=== PATIENT | male | born 1965 | race African-American/Black ===

== ENCOUNTER → 2018-05-18 11:40 | Outpatient (CLI) | payer OTHER, SELFPAY ==
[2018-05-18 15:23] LABS: Absolute Lymphocyte Count 1.92 X10^3/ul (0.83-4.51); Absolute Neutrophil Count 4.8 X10^3/uL (2.0-7.7); Basophil# 0.03 X10^3/uL; Basophil% 0.4 % (0-1); Eosinophil# 0.07 X10^3/uL; Hematocrit 41.3 % (40-54); Hemoglobin 13.1 g/dl (13.0-16.5); Lymphocyte # 1.92 X10^3/ul (4.0); Lymphocyte % 26.8 % (19-41); Mean Corp Hgb Conc 31.7 g/gl (32-36); Mean Corpuscular Volume 94.5 fL (80-94); Mean Platelet Vol. 9.3 fl (6.2-12.0); Monocyte# 0.31 X10^3/uL; Monocyte% 4.3 % (0-10); Neutrophil # 4.83 X10^3/uL (2.7-7.7); Neutrophil % 67.4 % (47-70); Platelet Count 419 K/mm3 (150-450); RBC Distribution Width SD 47.9 fl (35.1-43.9); Red Blood Count 4.37 M/mm3 (4.6-6.2); White Blood Count 7.2 K/mm3 (4.4-11.0)
[2018-05-18 15:26] LABS: POSITIVE COUNT NO; POSITIVE DIFFERENTIAL NO; POSITIVE MORPHOLOGY NO
[2018-05-18 15:37] LABS: ALB/GLOB Ratio 0.8 RATIO (0.9-2.4); AST(SGOT) 17 U/L (15-37); Alanine Aminotransfer ALT/SGPT 37 U/L (16-61); Albumin, Serum 3.6 g/dL (3.2-5.0); Alkaline Phosphatase 82 U/L (45-117); Anion Gap 9 (5-15); BUN 8 mg/dL (7-18); BUN/Creat Ratio 9.1 RATIO (10-20); Calcium,Total 8.3 mg/dL (8.5-10.1); Chloride 106 mmol/L (98-107); Cholesterol 162 mg/dL (200); Creatinine, Serum 0.88 mg/dL (0.70-1.30); EST Glomerular Filtration Rate 96 mL/min (>60); Est Glom Filt Rate - Afr Amer 116 mL/min (>60); Globulin 4.3 g/dL (2.2-4.2); Glucose 110 mg/dL (74-106); High Density Lipoprotein 54 mg/dL; PSA,Total - Annual Screen 0.65 ng/mL (0.00-4.00); Potassium 4.2 mmol/L (3.5-5.1); Protein, Total 7.9 g/dL (6.4-8.2); Sodium Level 140 mmol/L (136-145); Triglycerides 119 mg/dL; Very Low Density Lipoprotein 24 mg/dL (5-40)
[2018-05-18 15:48] LABS: Microalbumin,Random Urine 11.8 mg/L (NO RANGE EST.); Microalbumin:Creatinine Ratio 7.8 mg/g CRE (<30 mg/g CRE)
== END ==
LOC: BFHLAB 11:41
PROVIDERS: Family Provider Family Medicine; PCP Family Medicine; Visit Provider Family Medicine
DX: E11.9 Type 2 diabetes mellitus without complications (principal); I10 Essential (primary) hypertension; E66.3 Overweight; E01.0 Iodine-deficiency related diffuse (endemic) goiter; Z12.5 Encounter for screening for malignant neoplasm of prostate
CPT/HCPCS: 36415; 80053; 80061; 82043; 82570; 84153; 85025; G0103

== ENCOUNTER → 2019-08-20 15:47 | Outpatient (CLI) | payer OTHER, SELFPAY ==
[2019-08-20 17:01] LABS: Absolute Lymphocyte Count 2.24 X10^3/uL (0.83-4.51); Absolute Neutrophil Count 3.9 X10^3/uL (2.0-7.7); Basophil# 0.03 X10^3/uL; Basophil% 0.4 % (0-1); Eosinophil# 0.18 X10^3/uL; Eosinophils% 2.6 % (0-5); Hematocrit 41.8 % (40-54); Hemoglobin 13.7 g/dL (13.0-16.5); Lymphocyte # 2.24 X10^3/ul (4.0); Lymphocyte % 32.4 % (19-41); Mean Corp Hgb Conc 32.8 g/dL (32-36); Mean Corpuscular Volume 91.5 fL (80-94); Mean Platelet Vol. 9.3 fl (6.2-12.0); Monocyte# 0.55 X10^3/uL; Monocyte% 7.9 % (0-10); NRBC Flagged by Analyzer 0 % (0-5); Neutrophil % 56.4 % (47-70); Platelet Count 407 K/mm3 (150-450); RBC Distribution Width CV 13.2 % (11.6-14.6); RBC Distribution Width SD 44.1 fl (35.1-43.9); Red Blood Count 4.57 M/mm3 (4.6-6.2); White Blood Count 6.9 K/mm3 (4.4-11.0)
[2019-08-20 17:17] LABS: ALB/GLOB Ratio 0.9 RATIO (0.9-2.4); AST(SGOT) 17 U/L (15-37); Alanine Aminotransfer ALT/SGPT 43 U/L (16-61); Albumin, Serum 3.8 g/dL (3.2-5.0); Alkaline Phosphatase 93 U/L (45-117); Anion Gap 3 (5-15); BUN 14 mg/dL (7-18); BUN/Creat Ratio 13.6 RATIO (10-20); Calcium,Total 8.7 mg/dL (8.5-10.1); Chloride 105 mmol/L (98-107); Cholesterol 170 mg/dL (200); Creatinine, Serum 1.03 mg/dL (0.70-1.30); EST Glomerular Filtration Rate 79 mL/min (>60); Est Glom Filt Rate - Afr Amer 96 mL/min (>60); Globulin 4.3 g/dL (2.2-4.2); Glucose 91 mg/dL (74-106); High Density Lipoprotein 56 mg/dL; Potassium 4.4 mmol/L (3.5-5.1); Protein, Total 8.1 g/dL (6.4-8.2); Sodium Level 135 mmol/L (136-145); Triglycerides 108 mg/dL; Very Low Density Lipoprotein 22 mg/dL (5-40)
[2019-08-20 17:18] LABS: Hemoglobin A1c 6.9 % (4.2-6.3)
[2019-08-20 17:38] LABS: Microalbumin,Random Urine 23.6 mg/L (NO RANGE EST.); Microalbumin:Creatinine Ratio 8.1 mg/g CRE (<30 mg/g CRE)
== END ==
LOC: BFHLAB 15:48
PROVIDERS: Family Provider Family Medicine; PCP Family Medicine; Visit Provider Family Medicine
DX: Z00.00 Encounter for general adult medical examination without abnormal findings (principal); E11.9 Type 2 diabetes mellitus without complications; Z12.5 Encounter for screening for malignant neoplasm of prostate
CPT/HCPCS: 36415; 80053; 80061; 82043; 82570; 83036; 84153; 85025; G0103

== ENCOUNTER → 2020-08-28 10:47 | Outpatient (CLI) | payer OTHER, SELFPAY ==
[2014-07-11 09:42] VITALS: BMI 28.1
[2020-08-28 12:56] LABS: Absolute Lymphocyte Count 3.19 X10^3/uL (0.83-4.51); Absolute Neutrophil Count 3.5 X10^3/uL (2.0-7.7); Basophil# 0.06 X10^3/uL; Basophil% 0.8 % (0-1); Eosinophil# 0.26 X10^3/uL; Eosinophils% 3.5 % (0-5); Hematocrit 44.7 % (40-54); Hemoglobin 14.7 g/dL (13.0-16.5); Lymphocyte # 3.19 X10^3/ul (4.0); Lymphocyte % 42.6 % (19-41); Mean Corp Hgb Conc 32.9 g/dL (32-36); Mean Corpuscular Hgb 30.7 pg (27.0-32.0); Mean Corpuscular Volume 93.3 fL (80-94); Mean Platelet Vol. 9.5 fl (6.2-12.0); Monocyte# 0.44 X10^3/uL; Monocyte% 5.9 % (0-10); NRBC Flagged by Analyzer 0 % (0-5); Neutrophil # 3.51 X10^3/uL (2.7-7.7); Neutrophil % 46.8 % (47-70); Platelet Count 459 K/mm3 (150-450); RBC Distribution Width CV 13.2 % (11.6-14.6); RBC Distribution Width SD 45.5 fl (35.1-43.9); Red Blood Count 4.79 M/mm3 (4.6-6.2); White Blood Count 7.5 K/mm3 (4.4-11.0)
[2020-08-28 13:12] LABS: Hemoglobin A1c 7.1 % (3.8-5.6)
[2020-08-28 13:16] LABS: Microalbumin,Random Urine 23.4 mg/L (NO RANGE EST.); Microalbumin:Creatinine Ratio 11.7 mg/g CRE (<30 mg/g CRE)
[2020-08-28 13:42] LABS: ALB/GLOB Ratio 0.8 RATIO (0.9-2.4); AST(SGOT) 15 U/L (15-37); Alanine Aminotransfer ALT/SGPT 32 U/L (16-61); Albumin, Serum 3.6 g/dL (3.2-5.0); Alkaline Phosphatase 105 U/L (45-117); Anion Gap 10 (5-15); BUN 8 mg/dL (7-18); BUN/Creat Ratio 8.4 RATIO (10-20); Calcium,Total 8.7 mg/dL (8.5-10.1); Chloride 108 mmol/L (98-107); Cholesterol 172 mg/dL (200); Creatinine, Serum 0.95 mg/dL (0.70-1.30); EST Glomerular Filtration Rate 86 mL/min (>60); Est Glom Filt Rate - Afr Amer 105 mL/min (>60); Globulin 4.4 g/dL (2.2-4.2); Glucose 100 mg/dL (74-106); High Density Lipoprotein 49 mg/dL; PSA,Total - Annual Screen 0.74 ng/mL (0.00-4.00); Potassium 4.2 mmol/L (3.5-5.1); Sodium Level 140 mmol/L (136-145); Triglycerides 135 mg/dL; Very Low Density Lipoprotein 27 mg/dL (5-40)
== END ==
PROVIDERS: PCP Family Medicine; Visit Provider Family Medicine
DX: Z00.00 Encounter for general adult medical examination without abnormal findings (principal); E11.9 Type 2 diabetes mellitus without complications; Z12.5 Encounter for screening for malignant neoplasm of prostate
CPT/HCPCS: 36415; 80053; 80061; 82043; 82570; 83036; 84153; 85025; G0103

== ENCOUNTER → 2022-10-18 | Outpatient (CLI) | payer OTHER, SELFPAY ==
[2022-10-18 15:05] LABS: Absolute Lymphocyte Count 2.01 X10^3/uL (0.83-4.51); Basophil# 0.06 X10^3/uL; Basophil% 0.9 % (0-1); Eosinophil# 0.12 X10^3/uL; Eosinophils% 1.8 % (0-5); Hematocrit 44.2 % (40-54); Hemoglobin 14.6 g/dL (13.0-16.5); Lymphocyte # 2.01 X10^3/ul (0.83-4.51); Lymphocyte % 30.2 % (19-41); Mean Corpuscular Hgb 31.1 pg (27.0-32.0); Mean Platelet Vol. 9.3 fl (6.2-12.0); Monocyte# 0.49 X10^3/uL; Monocyte% 7.4 % (0-10); NRBC Flagged by Analyzer 0 % (0-5); Neutrophil # 3.96 X10^3/uL (2.7-7.7); Neutrophil % 59.4 % (47-70); Platelet Count 421 K/mm3 (150-450); RBC Distribution Width CV 13.1 % (11.6-14.6); RBC Distribution Width SD 45.1 fl (35.1-43.9); White Blood Count 6.7 K/mm3 (4.4-11.0)
[2022-10-18 15:49] LABS: Microalbumin,Random Urine 19.4 mg/L (NO RANGE EST.); Microalbumin:Creatinine Ratio 7.7 mg/g CRE (<30 mg/g CRE)
[2022-10-18 18:14] LABS: ALB/GLOB Ratio 0.9 RATIO (0.9-2.4); AST(SGOT) 11 U/L (15-37); Alanine Aminotransfer ALT/SGPT 27 U/L (16-61); Albumin, Serum 3.9 g/dL (3.2-5.0); Alkaline Phosphatase 101 U/L (45-117); Anion Gap 8 (5-15); BUN 10 mg/dL (7-18); BUN/Creat Ratio 11.9 RATIO (10-20); Calcium,Total 9.1 mg/dL (8.5-10.1); Chloride 103 mmol/L (98-107); Cholesterol 173 mg/dL (200); Creatinine, Serum 0.84 mg/dL (0.70-1.30); EST Glomerular Filtration Rate 99 mL/min (>60); Est Glom Filt Rate - Afr Amer 120 mL/min (>60); Globulin 4.2 g/dL (2.2-4.2); Glucose 96 mg/dL (74-106); High Density Lipoprotein 61 mg/dL; Potassium 4.3 mmol/L (3.5-5.1); Protein, Total 8.1 g/dL (6.4-8.2); Sodium Level 136 mmol/L (136-145); Triglycerides 94 mg/dL; Very Low Density Lipoprotein 19 mg/dL (5-40)
== END | disposition home or self-care (01) ==
LOC: BFHLAB 13:34
PROVIDERS: PCP Family Medicine; Visit Provider Family Medicine
DX: Z00.00 Encounter for general adult medical examination without abnormal findings (principal); E11.9 Type 2 diabetes mellitus without complications
CPT/HCPCS: 36415; 80053; 80061; 82043; 82570; 85025

== ENCOUNTER → 2024-09-13 | Outpatient (CLI) | payer OTHER, SELFPAY ==
[2024-09-13 17:53] LABS: Absolute Lymphocyte Count 2.18 X10^3/uL (0.83-4.51); Basophil# 0.05 X10^3/uL; Basophil% 0.6 % (0-1); Eosinophil# 0.05 X10^3/uL; Eosinophils% 0.6 % (0-5); Hematocrit 44.4 % (40-54); Hemoglobin 14.8 g/dL (13.0-16.5); Lymphocyte # 2.18 X10^3/ul (0.83-4.51); Lymphocyte % 24.7 % (19-41); Mean Corp Hgb Conc 33.3 g/dL (32-36); Mean Corpuscular Hgb 31.2 pg (27.0-32.0); Mean Corpuscular Volume 93.5 fL (80-94); Mean Platelet Vol. 9.5 fl (6.2-12.0); Monocyte# 0.54 X10^3/uL; Monocyte% 6.1 % (0-10); NRBC Flagged by Analyzer 0 % (0-5); Neutrophil # 5.96 X10^3/uL (2.7-7.7); Neutrophil % 67.7 % (47-70); Platelet Count 429 K/mm3 (150-450); RBC Distribution Width CV 13.2 % (11.6-14.6); RBC Distribution Width SD 45.2 fl (35.1-43.9); Red Blood Count 4.75 M/mm3 (4.6-6.2); White Blood Count 8.8 K/mm3 (4.4-11.0)
[2024-09-13 18:18] LABS: ALB/GLOB Ratio 0.9 RATIO (0.9-2.4); AST(SGOT) 15 U/L (15-37); Alanine Aminotransfer ALT/SGPT 31 U/L (16-61); Albumin, Serum 3.8 g/dL (3.2-5.0); Alkaline Phosphatase 118 U/L (45-117); Anion Gap 8 (5-15); BUN 8 mg/dL (7-18); BUN/Creat Ratio 9.8 RATIO (10-20); Calcium,Total 8.7 mg/dL (8.5-10.1); Chloride 106 mmol/L (98-107); Cholesterol 175 mg/dL (200); Creatinine, Serum 0.81 mg/dL (0.70-1.30); EST Glomerular Filtration Rate 102 mL/min (>60); Est Glom Filt Rate - Afr Amer 124 mL/min (>60); Globulin 4.1 g/dL (2.2-4.2); Glucose 96 mg/dL (74-106); High Density Lipoprotein 56 mg/dL; PSA,Total - Annual Screen 0.99 ng/mL (0.00-4.00); Protein, Total 7.9 g/dL (6.4-8.2); Sodium Level 137 mmol/L (136-145); Thyroid Stim Hormone (TSH) 0.793 uIU/mL (0.358-3.740); Triglycerides 100 mg/dL; Very Low Density Lipoprotein 20 mg/dL (5-40)
[2024-09-13 18:47] LABS: Microalbumin,Random Urine 38.5 mg/L (NO RANGE EST.); Microalbumin:Creatinine Ratio 24.8 mg/g CRE (<30 mg/g CRE)
[2024-09-14 10:02] LABS: Vitamin B12 228 pg/mL (211-911)
== END | disposition home or self-care (01) ==
LOC: BFHLAB 14:32
PROVIDERS: PCP Family Medicine; Referring Provider Nurse Practitioner Family; Visit Provider Nurse Practitioner Family
DX: Z00.01 Encounter for general adult medical examination with abnormal findings (principal); E11.9 Type 2 diabetes mellitus without complications; Z12.5 Encounter for screening for malignant neoplasm of prostate; I10 Essential (primary) hypertension; R53.83 Other fatigue
CPT/HCPCS: 36415; 80053; 80061; 82043; 82306; 82570; 82607; 84153; 84443; 85025; G0103

== ENCOUNTER 2024-11-24 07:17 | Day surgery (SDC) | payer OTHER, SELFPAY ==
[2024-11-24 07:30] VITALS: BP 143/97; PULSE 69; RESP 16; TEMP 36.8; O2SAT 100; BMI 26.9
--- NOTE | 2024-11-24 07:31 | PCM.PRE.AN2 ---
ASA Classification* ASA Classification ASA Classification: 2 Assessment & Plan Anesthesia* Anesthesia Assessment Anesthesia Assessment: Discussed sedation and/or anesthesia options, risks, benefits, and alternatives with patient/parents/legal guardian/POA. Questions invited. The patient/parents/legal guardian/POA seems to understand and agrees to proceed with anesthesia plan. Reviewed the physical assessment, medical history, allergy history and patient home medications list prior to surgery/procedure/anesthetic and documented any changes. Performed airway and anesthesia risk assessments. Anesthesia Type Anesthesia Type: MAC Anesthesia Focused Assessment* Airway Assessment Mouth opens: >3 cm Mallampati Score: II Focused Labs Anesthesia Preop lab: CBC WBC 8.8 K/mm3 (4.4-11.0) 09/13/24 14:37 09/13/24 RBC 4.75 M/mm3 (4.6-6.2) 09/13/24 14:37 09/13/24 Hgb 14.8 g/dL (13.0-16.5) 09/13/24 14:37 09/13/24 Hct 44.4 % (40-54) 09/13/24 14:37 09/13/24 Plt Count 429 K/mm3 (150-450) 09/13/24 14:37 09/13/24 CHEMISTRY Potassium 4.0 mmol/L (3.5-5.1) 09/13/24 14:37 09/13/24 Sodium 137 mmol/L (136-145) 09/13/24 14:37 09/13/24 BUN 8 mg/dL (7-18) 09/13/24 14:37 09/13/24 Creatinine 0.81 mg/dL (0.70-1.30) 09/13/24 14:37 09/13/24 Glucose 96 mg/dL (74-106) 09/13/24 14:37 09/13/24 TSH 0.793 uIU/mL (0.358-3.740) 09/13/24 14:37 09/13/24 COAG Pre-Assessment Diagnosis/Proposed Procedure Planned Operative Procedure(s): COLONOSCOPY Anesthesia History 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 When Was Last Pacemaker Check QUESTION #4 FULL TEXT: You/Your Family Experience fever (hyperthermia) with Anesthesia Last Oral Intake Last Oral intake: Last Oral Intake NPO since Meds taken in AM with sips of water? Meds patient instructed to take am of surgery PONV PONV - senior radiation therapist: PONV - senior radiation therapist Female No 11/18/24 14:07 HX of Motion Sickness Yes 11/18/24 14:07 HX of N/V After Surgery No 11/18/24 14:07 Non-Smoker Yes 11/18/24 14:07 Duration of Surgery greater No 11/18/24 14:07 than 60 minutes Number of Risk Factors 2 11/18/24 14:07 PONV Score Moderate Risk 11/18/24 14:07 Height & Weight Height & Weight: Anesthesia: Height & Weight Height 5 ft 9 in 09/16/24 08:54 Respiratory Assessment Respiratory Assessment - senior radiation therapist: Respiratory Tract Infection Hx - senior radiation therapist Hx Respiratory Tract Infection No 11/18/24 14:07 STOP Sleep Apnea STOP Sleep Apnea - senior radiation therapist: STOP Sleep Apnea - senior radiation therapist Hx Hypertension Yes 11/18/24 14:07 Hx Sleep Apnea No 11/18/24 14:07 CPAP BIPAP Do you snore loudly (louder No 11/18/24 14:07 than talking or can be heard Do you often feel tired/ No 11/18/24 14:07 fatigued/ sleepy during daytime? Has anyone observed you stop No 11/18/24 14:07 breathing during sleep? STOP Results Negative 11/18/24 14:07 QUESTION #5 FULL TEXT : Do you snore loudly (louder than talking or can be heard through closed doors)? 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 Specify any problems Hx of Preganancy in last 3 N/A 11/18/24 14:07 Months Nurse Filling Out Transfusion [facility] 11/18/24 14:07 & Questions: Date: 11/18/24 11/18/24 14:07 Time: 14:13 11/18/24 14:07 Patient unable to answer at this time (ie. confused, unrespo /Reproduction History /Reproductive History - senior radiation therapist: /Reproductive Hx- senior radiation therapist Hx Now No 11/18/24 14:07 Gestational Age (in weeks): EDC: Hx Hx Para Hx Section SAB No 11/18/24 14:07 PFSH Medical History Wears dentures Marijuana use Diabetes High cholesterol Former smoker Abscess of anal and rectal regions Hemorrhoids HTN (hypertension) Type 2 diabetes mellitus Home Medications ?Medication ?Instructions ?Recorded ?Last Taken ?Type aspirin 81 mg chewable tablet 81 mg PO DAILY@0800 07/11/14 11/23/24 History amlodipine 10 mg tablet 10 mg PO QDAY 09/16/24 11/24/24 History metformin 1,000 mg tablet 1,000 mg PO BID 09/16/24 11/23/24 History sulindac 150 mg tablet 150 mg PO BID PRN pain 09/16/24 11/23/24 History Allergy/AdvReac Type Severity Reaction Status Date / Time tramadol AdvReac Fatigue Verified 11/24/24 07:28 Family History Brother Prostate cancer Sister Breast cancer Throat cancer Surgical History Hx of hemorrhoidectomy Hx of colonoscopy with polypectomy Social History current occupational status: employed Smoking Status: Former smoker alcohol intake: never substance use type: does not use Review of Systems (Anesthesia) ROS Narrative System reviewed and no additional complaints, except as documented.
[2024-11-24 07:53] LABS: Bedside Glucose 126 mg/dL (74-106)
--- NOTE | 2024-11-24 08:30 | COLBX_PTH ---
PATIENT: JOSHUA PRIDE LOC: EN U#:[id number] AGE/SX: 59/M ROOM: RE11/24/[address]: Dr. Gage Cavazos DO : 1965 BED: DIS: 11/24/2024 SPEC #: [id number] RECD: 11/24/24 14:38 STATUS: TOSHA RELauri #: [id number] MARIA: 11/24/24 08:[address]: Gage Cavazos DEPT: SURGICAL PATHOLOGY RECD BY: Harvey Gu ENTERED: 11/24/24 14:38 SP TYPE: COLON BX OTHR DR: Dr. Hector Bey DO Tissues: A - Rectum, NOS Procedures: Surgery Specimen Level IV HEADER OPERATION: Colonoscopy with biopsy PRE-OP DIAGNOSIS: Encounter for screening for malignant neoplasm of colon TISSUE SUBMITTED: A- Rectal biopsy MICROSCOPIC DIAGNOSIS A. Rectum, biopsy: * Colonic mucosa with focally dilated crypts and hyperplastic features MICROSCOPIC DESCRIPTION Slides are reviewed. GROSS DESCRIPTION A. Received in formalin in a container labeled with the patient's name, date of , and rectal biopsy is a 0.3 x 0.2 x 0.2 cm fragment of cruz-pink mucosal tissue. Submitted in toto in A1. SMB 11/30/2024 CPT:20727
--- NOTE | 2024-11-24 08:59 | PCM.HP.STD ---
[facility] - General General Date of Admission: 11/24/24 Date of Service: 11/24/24 Chief Complaint: Screening colonoscopy HPI Narrative JOSHUA PRIDE, is a 59 M who presents today for screening colonoscopy. He had a colonoscopy approximately 11 years ago. He had 1 polyp done at time. He does not have any abdominal pain, cramping, chest pain or shortness of breath. He has a past medical history hypertension and takes amlodipine and aspirin on a daily basis. He also has a past medical history of type 2 diabetes and takes metformin 1000 mg twice a day. [facility] Medical History Wears dentures Marijuana use Diabetes High cholesterol Former smoker Abscess of anal and rectal regions Hemorrhoids HTN (hypertension) Type 2 diabetes mellitus Home Medications ?Medication ?Instructions ?Recorded ?Last Taken ?Type aspirin 81 mg chewable tablet 81 mg PO DAILY@0800 07/11/14 11/23/24 History amlodipine 10 mg tablet 10 mg PO QDAY 09/16/24 11/24/24 History metformin 1,000 mg tablet 1,000 mg PO BID 09/16/24 11/23/24 History sulindac 150 mg tablet 150 mg PO BID PRN pain 09/16/24 11/23/24 History Allergy/AdvReac Type Severity Reaction Status Date / Time tramadol AdvReac Fatigue Verified 11/24/24 07:28 Family History Brother Prostate cancer Sister Breast cancer Throat cancer Surgical History Hx of hemorrhoidectomy Hx of colonoscopy with polypectomy Social History current occupational status: employed Smoking Status: Former smoker alcohol intake: never substance use type: does not use ROS Constitutional Constitutional: Denies fatigue, fever(s), poor appetite, weight gain or weight loss Gastrointestinal Gastrointestinal: Denies belching, bloating, change in bowel habits, change in stool character, chewing difficulty, coffee ground emesis, constipation, cramping, diarrhea, dyspepsia, dysphagia, early satiety, excessive flatus, fecal incontinence, heartburn, hematemesis, hematochezia, hemorrhoids, loose stools, melena, nausea, odynophagia, rectal bleeding, tenesmus, vomiting or weight changes Vital Signs Vital Signs Vital Signs: 11/24/24 07:30 11/24/24 07:30 Temperature 98.2 F Temperature Source Temporal Pulse Rate 69 Respiratory Rate 16 Respiratory Pattern Normal Blood Pressure 143/97 H Blood Pressure Mean 112 Blood Pressure Source Monitor Blood Pressure Position Sitting Blood Pressure Location Left Arm Pulse Ox 100 Oxygen Delivery Method Room Air Weight Weight: 171 lb 15.369 oz Body Mass Index (BMI) 26.9 Physical Exam Const alert, oriented x3, no apparent distress and healthy appearing General Appearance: cooperative GI normal to inspection, nondistended, normoactive bowel sounds, soft to palpation, non-tender and non-distended Percussion: normal to percussion Rectal Exam: deferred Results Lab / Micro Data Labs: Laboratory Results - last 24 hr 11/24/24 07:33: POC Glucose 126 H Assessment & Plan Assessment/Plan (1) Encounter for screening for malignant neoplasm of colon: PLAN: He was explained alternatives, risk and benefits include understanding bleeding, infection, sepsis, perforation, need for more charge and . He will have an ASA of 3.
[2024-11-24 09:29] VITALS: BP 114/74; BP 143/97; PULSE 62; RESP 16; TEMP 36.6; O2SAT 96
--- NOTE | 2024-11-24 09:34 | OP.COLON_ITS ---
Patient Name: José Miguel Sanders Procedure Date: 11/24/2024 9:06 AM Date of : 1965 Age: 59 Procedure: Colonoscopy Indications: Screening for colorectal malignant neoplasm Providers: Gage Cavazos DO Medicines: Monitored Anesthesia Care Patient Profile: This is a 59 year old male. Refer to note in patient chart for documentation of history and physical. Last Colonoscopy: more than 10 years ago. Complications: No immediate complications. Procedure: Pre-Anesthesia Assessment: - Prior to the procedure, a History and Physical was performed, and patient medications and allergies were reviewed. The patient is competent. The risks and benefits of the procedure and the sedation options and risks were discussed with the patient. All questions were answered and informed consent was obtained. Patient identification and proposed procedure were verified by the physician in the pre-procedure area. Mental Status Examination: alert and oriented. Airway Examination: normal oropharyngeal airway and neck mobility. Respiratory Examination: clear to auscultation. CV Examination: normal. Prophylactic Antibiotics: The patient does not require prophylactic antibiotics. Prior Anticoagulants: The patient has taken no anticoagulant or antiplatelet agents. ASA Grade Assessment: II - A patient with mild systemic disease. After reviewing the risks and benefits, the patient was deemed in satisfactory condition to undergo the procedure. The anesthesia plan was to use monitored anesthesia care (MAC). Immediately prior to administration of medications, the patient was re-assessed for adequacy to receive sedatives. The heart rate, respiratory rate, oxygen saturations, blood pressure, adequacy of pulmonary ventilation, and response to care were monitored throughout the procedure. The physical status of the patient was re-assessed after the procedure. After I obtained informed consent, the scope was passed under direct vision. Throughout the procedure, the patient's blood pressure, pulse, and oxygen saturations were monitored continuously. The colonoscope was introduced through the anus and advanced to the cecum, identified by appendiceal orifice and ileocecal valve. The colonoscopy was performed without difficulty. The patient tolerated the procedure well. The quality of the bowel preparation was adequate. The ileocecal valve, appendiceal orifice, and rectum were photographed. Scope In: 9:13:56 AM Scope Withdrawal Time 0 hours 6 minutes 1 second Scope Out: 9:24:08 AM Total Procedure Duration Time 0 hours 10 minutes 12 seconds Findings: The perianal and digital rectal examinations were normal. A few small and large-mouthed diverticula were found in the recto-sigmoid colon, sigmoid colon and descending colon. A 5 mm polyp was found in the recto-sigmoid colon. The polyp was sessile. The polyp was removed with a cold biopsy forceps. Resection and retrieval were complete. Verification of patient identification for the specimen was done. Estimated blood loss was minimal. Impression: - Diverticulosis in the recto-sigmoid colon, in the sigmoid colon and in the descending colon. - One 5 mm polyp at the recto-sigmoid colon, removed with a cold biopsy forceps. Resected and retrieved. Recommendation: - Repeat colonoscopy in 5 years for surveillance. - Continue present medications. Procedure Code(s): --- Professional --- 71926, Colonoscopy, flexible; with biopsy, single or multiple CPT copyright 2021 [employer]. All rights reserved. The codes documented in this report are preliminary and upon national account director review may be revised to meet current compliance requirements. Gage Cavazos DO 11/24/2024 9:33:32 AM This report has been signed electronically. Number of Addenda: 0 Note Initiated On: 11/24/2024 9:06 AM
--- NOTE | 2024-11-24 09:34 | OP.CCLET_ITS ---
11/24/2024 Hector Bey [address] [place] [address] Re : Colonoscopy procedure for José Miguel Sanders Dear Dr. Bey This procedure was performed on Sunday, November 24, 2024. My impressions and recommendations are as follows: Impressions : - Diverticulosis in the recto-sigmoid colon, in the sigmoid colon and in the descending colon. - One 5 mm polyp at the recto-sigmoid colon, removed with a cold biopsy forceps. Resected and retrieved. Recommendations : - Repeat colonoscopy in 5 years for surveillance. - Continue present medications. My findings are described in the full procedure note, which is enclosed. If I can be of further assistance, please feel free to contact me at . Sincerely, Gage Cavazos, 11/24/2024 9:33:32 AM This report has been signed electronically.
--- NOTE | 2024-11-24 09:34 | PCM.POST.ANE ---
Anesthesia: Postop Eval I Current Vital Signs Temperature: 97.6 F Pulse Rate: 71 Blood Pressure: 114/74 Respiratory Rate: 16 Pulse Ox: 97 Oxygen Delivery Method: Room Air Assessment Airway patent: Yes Spontaneous unlabored respirations: Yes Mental status: Asleep nausea: No Vomiting: No Anesthesia Complication: No Fluid Hydration Crystalloid volume administer (ml): 50 Total IV fluid infused: 50 Progress Note Anesthesia document: Postop Eval 1 completed: Yes
[2024-11-24 09:35] VITALS: BP 107/77; BP 114/74; BP 143/97; PULSE 62; PULSE 71; RESP 16; TEMP 36.4; O2SAT 96; O2SAT 97
[2024-11-24 09:45] VITALS: BP 119/84; BP 143/97; PULSE 55; RESP 16; O2SAT 98
--- NOTE | 2024-11-24 09:46 | PCM.POSTANE2 ---
Anesthesia Postop Eval I Sum Postop Eval Completion status Anesthesia document: Postop Eval 1 completed: Yes Anesthesia Postop Eval I Summary Anesthesia Postop Eval I Summary: Anesthesia Postop Eval I: Assessment Summary Airway patent Yes 11/24/24 09:35 [email or web address] Spontaneous unlabored Yes 11/24/24 09:35 [email or web address] respirations Mental status Asleep 11/24/24 09:35 [email or web address] nausea No 11/24/24 09:35 [email or web address] Vomiting No 11/24/24 09:35 [email or web address] Anesthesia Postop Eval I: Fluid Summary Crystalloid volume administer 50 11/24/24 09:35 [email or web address] (ml) Colloids volume administered ( ml) Blood Product volume administered (ml) Total IV fluid infused 50 11/24/24 09:35 [email or web address] Anesthesia Postop Eval I: Summary Notes Anesthesia Complication No 11/24/24 09:35 [email or web address] Anesthesia Complication Comment: Post-operative progress note Anesthesia: Postop Eval II Evaluation Mental status: Awake Pain Level: 0 nausea: No Vomiting: No
[2024-11-24 09:51] VITALS: BP 123/88; BP 143/97; PULSE 54; RESP 16; TEMP 36.3; O2SAT 100
[2024-11-24 10:05] VITALS: BP 143/97
== END 2024-11-24 10:08 | disposition home or self-care (01) ==
LOC: EN 07:19 → AC 07:20
PROVIDERS: PCP Family Medicine; Referring Provider Family Medicine; Visit Provider Internal Medicine Gastroenterology
PROC: 0DJD8ZZ Inspection of Lower Intestinal Tract, Via Natural or Artificial Opening Endoscopic (ICD-10-PCS; CPT 45378; principal; 2024-11-24 08:25)
DX: Z12.11 Encounter for screening for malignant neoplasm of colon (principal); E11.9 Type 2 diabetes mellitus without complications; K57.30 Diverticulosis of large intestine without perforation or abscess without bleeding; I10 Essential (primary) hypertension; E78.00 Pure hypercholesterolemia, unspecified; Z87.891 Personal history of nicotine dependence; Z79.84 Long term (current) use of oral hypoglycemic drugs; K63.5 Polyp of colon; Z79.82 Long term (current) use of aspirin; Z79.899 Other long term (current) drug therapy; Z86.0100 Personal history of colon polyps, unspecified
CPT/HCPCS: 45380; 82962; 88305; A4216; J2405